=== PATIENT | male | born 1960 ===

== ENCOUNTER 2020-05-08 08:57 | Inpatient (IN) ==
[2020-05-08] MEDS ORDERED: cefOXitin 2,000 MG in Water for inj. (sterile) 20 ML IVP ONE (09:18)
[2020-05-08] MEDS: Ringers Solution, Lactated 1,000 ML IVC SCH ×2 (09:44→15:32)
[2020-05-08] MEDS ORDERED: *HR* HYDROmorphone PF 0.5 MG/0.5 ML SYRINGE IVP PRN (10:03)
[2020-05-08] MEDS ORDERED: *HR* OxyCODONE Immed Rel 5 MG TABLET PO PRN (10:03)
[2020-05-08] MEDS ORDERED: Ondansetron 4 MG/2 ML VIAL IVP PRN ×2 (10:03→16:11)
[2020-05-08] MEDS ORDERED: *HR* Propofol 200 MG/20 ML VIAL IVP ONE (10:24)
[2020-05-08] MEDS ORDERED: *HR* FentaNYL (PF) 100 MCG/2 ML VIAL ONE ×3 (10:24→12:49)
[2020-05-08] MEDS ORDERED: *HR* Midazolam HCl 2 MG/2 ML VIAL ONE (10:24)
[2020-05-08] MEDS ORDERED: *HR* Rocuronium Bromide 50 MG/5 ML VIAL ONE ×2 (10:28→13:08)
[2020-05-08] MEDS ORDERED: Ondansetron 4 MG/2 ML VIAL ONE (10:28)
[2020-05-08] MEDS ORDERED: Dexamethasone 4 MG/ML VIAL ONE (10:28)
[2020-05-08] MEDS ORDERED: *HR* Succinylcholine 200 MG/10 ML VIAL IVP ONE (10:28)
[2020-05-08] MEDS ORDERED: Lidocaine -MPF 2% 2 ML VIAL ONE (10:28)
[2020-05-08] MEDS ORDERED: Lidocaine -MPF 4% 5 ML AMPUL ONE (10:33)
[2020-05-08] MEDS ORDERED: Acetaminophen IV 1,000 MG/100 ML BAG IVPB ONE (11:31)
[2020-05-08] MEDS ORDERED: *HR* Labetalol 20 MG/4 ML SYRINGE IVP ONE (12:53)
[2020-05-08] MEDS ORDERED: *HR* HYDROMORPHONE 2 MG/ML VIAL ONE (13:12)
[2020-05-08] MEDS ORDERED: *HR* Metoprolol 5 MG/5 ML VIAL IVP ONE (13:42)
[2020-05-08] MEDS ORDERED: Sugammadex Sodium 200 MG/2 ML VIAL IV ONE (13:48)
[2020-05-08] MEDS ORDERED: Naloxone 0.4 MG/ML INJ IVP PRN (16:11)
[2020-05-08 16:45] LABS: Basophils % 0.3 %; Eosinophils % 0.1 %; Hematocrit 42.2 % (37.5-50.1); Hemoglobin 13.5 g/dL (12.9-16.9); Immature Granulocytes % 0.6 % (0-4); Lymphocytes # 0.3 K/mcL (0.6-4.6); Lymphocytes % 2.2 %; Mean Corpuscular Hemoglobin 31.1 pg (28.0-33.3); Mean Corpuscular Volume 97.2 fL (83.0-100.0); Mean Platelet Volume 9.6 fL (9.4-12.4); Monocytes # 0.2 K/mcL (0.0-1.3); Monocytes % 1.7 %; Neutrophils # 12.7 K/mcL (1.6-8.9); Platelet Count 196 K/mcL (140-400); Red Blood Count 4.34 M/mcL (4.19-5.50); Red Cell Distribution Width 12.1 % (11.5-14.5); Segmented Neutrophils % 95.1 %; White Blood Count 13.3 K/mcL (4.3-11.1)
[2020-05-08] MEDS: 0.9 % Sodium Chloride 1,000 ML IVC SCH (17:40)
[2020-05-08] MEDS: Ketorolac 15 MG/ML VIAL IVP SCH ×2 (17:41→23:57)
[2020-05-08] MEDS: *HR* Heparin 5,000 UNIT/ML VIAL SQ SCH (17:41)
[2020-05-08] MEDS: Acetaminophen IV 1,000 MG/100 ML BAG IVPB SCH (17:58)
[2020-05-09] MEDS: Acetaminophen IV 1,000 MG/100 ML BAG IVPB SCH ×5 (01:08→21:13)
[2020-05-09 02:12] LABS: Basophils % 0.2 %; Hematocrit 34.7 % (37.5-50.1); Immature Granulocytes % 0.4 % (0-4); Lymphocytes # 0.4 K/mcL (0.6-4.6); Mean Corpuscular HGB Conc 33.1 g/dL (31.6-35.5); Mean Corpuscular Hemoglobin 31.9 pg (28.0-33.3); Mean Corpuscular Volume 96.1 fL (83.0-100.0); Mean Platelet Volume 10.2 fL (9.4-12.4); Monocytes # 0.6 K/mcL (0.0-1.3); Monocytes % 6.9 %; Neutrophils # 8.1 K/mcL (1.6-8.9); Platelet Count 175 K/mcL (140-400); Red Blood Count 3.61 M/mcL (4.19-5.50); Red Cell Distribution Width 12.1 % (11.5-14.5); Segmented Neutrophils % 88.5 %; White Blood Count 9.1 K/mcL (4.3-11.1)
[2020-05-09 02:13] LABS: Hemoglobin 11.5 g/dL (12.9-16.9)
[2020-05-09 02:31] LABS: BUN/Creatinine Ratio 15 (6-26); Blood Urea Nitrogen 10 mg/dL (6-20); Carbon Dioxide 22 mEq/L (23-29); Chloride 107 mEq/L (98-107); Glucose 133 mg/dL (70-105); Osmolality,Calculated 279 (280-300); Potassium 4.3 mEq/L (3.5-5.1); Sodium 134 mEq/L (136-145); eGFR For African Americans > 60 (> 60); eGFR For Non-African Americans > 60 (> 60)
[2020-05-09] MEDS: *HR* Heparin 5,000 UNIT/ML VIAL SQ SCH ×2 (05:15→18:29)
[2020-05-09] MEDS: Ketorolac 15 MG/ML VIAL IVP SCH ×3 (05:16→18:30)
[2020-05-09] MEDS: 0.9 % Sodium Chloride 1,000 ML IVC SCH ×2 (08:09→21:09)
[2020-05-10] MEDS: Ketorolac 15 MG/ML VIAL IVP SCH ×4 (00:02→18:02)
[2020-05-10] MEDS: *HR* Heparin 5,000 UNIT/ML VIAL SQ SCH ×2 (05:21→18:02)
[2020-05-10] MEDS: Acetaminophen IV 1,000 MG/100 ML BAG IVPB SCH ×3 (05:21→18:02)
[2020-05-10] MEDS: 0.9 % Sodium Chloride 1,000 ML IVC SCH (10:02)
[2020-05-11] MEDS: Ketorolac 15 MG/ML VIAL IVP SCH ×4 (00:21→17:44)
[2020-05-11] MEDS: Acetaminophen IV 1,000 MG/100 ML BAG IVPB SCH ×3 (00:21→11:47)
[2020-05-11] MEDS: 0.9 % Sodium Chloride 1,000 ML IVC SCH ×2 (05:22→16:11)
[2020-05-11] MEDS: *HR* Heparin 5,000 UNIT/ML VIAL SQ SCH ×2 (05:23→17:44)
[2020-05-12] MEDS: Ketorolac 15 MG/ML VIAL IVP SCH ×4 (05:18→17:05)
[2020-05-12] MEDS: *HR* Heparin 5,000 UNIT/ML VIAL SQ SCH ×2 (05:20→17:04)
[2020-05-13] MEDS: Ketorolac 15 MG/ML VIAL IVP SCH ×2 (04:14→08:54)
[2020-05-13] MEDS: 0.9 % Sodium Chloride 1,000 ML IVC SCH (07:48)
[2020-05-13] MEDS: *HR* Heparin 5,000 UNIT/ML VIAL SQ SCH (08:54)
[2020-05-13 11:02] VITALS: BP 104/60
== END 2020-05-13 16:58 | disposition home health service (06) | DRG 231 ==
LOC: SAMDAY 08:57 → 3ANU 16:04
PROVIDERS: ADMIT Surgery; ATTEND Surgery